=== PATIENT | male | born 1980 | race Caucasian/White ===

== ENCOUNTER 2016-12-24 18:09 | Emergency (ER) | payer OTHER ==
[2016-12-24 18:19] VITALS: RESP 16
--- NOTE | 2016-12-24 18:30 | ED ---
Skin/Abscess/FB HPI - General Chief complaint: Skin/Abscess/Foreign Body Stated complaint: SWELLING AROUND TATTOO Time Seen by Provider: 12/24/16 18:19 Source: patient Mode of arrival: ambulatory Limitations: no limitations - History of Present Illness Initial comments: 36-year-old male complains of right upper extremity pain and swelling the last 2 days. Patient states yesterday after be touching of his tattoo on his forearm. Patient states the pain is around the tattoo in the form and going up into the biceps down into the hand. Patient states is very painful. Patient states he's had MRSA and staph infections in the past. No fever chills. Patient denies any sores or rash or open drainage. Patient states it hurts to touch and move. - Related Data Previous Rx's Medication Instructions Recorded Sulfamethox-Tmp 800-160Mg [Bactrim 1 each PO Q12HR #14 tab 12/24/16 DS 800-160 mg] Allergies Allergy/AdvReac Type Severity Reaction Status Date / Time cyclobenzaprine Allergy Itching Verified 12/24/16 18:32 [From Flexeril] Iodinated Contrast- Oral and Allergy Swelling Verified 12/24/16 18:32 IV Dye Penicillins Allergy Rash/Hives Verified 12/24/16 18:32 Review of Systems ROS Statement: Those systems with pertinent positive or pertinent negative responses have been documented in the HPI. ROS Other: All systems not noted in ROS Statement are negative. Constitutional: Denies: fever, chills Skin: Reports: other (right arm pain swelling) Neurological: Denies: headache, weakness, numbness, paresthesias Past Medical History Past Medical History: No Reported History History of Any Multi-Drug Resistant Organisms: None Reported Past Surgical History: Orthopedic Surgery Past Psychological History: No Psychological Hx Reported Smoking Status: Current every day smoker Past Alcohol Use History: Occasional Past Drug Use History: None Reported General Exam Limitations: no limitations General appearance: alert, in no apparent distress Respiratory exam: Present: normal lung sounds bilaterally. Absent: respiratory distress, wheezes, rales, rhonchi, stridor Cardiovascular Exam: Present: regular rate, normal rhythm, normal heart sounds. Absent: systolic murmur, diastolic murmur, rubs, gallop, clicks Right Shoulder Exam: Present: normal inspection, full ROM. Absent: tenderness, swelling Upper Arm exam: Present: normal inspection, full ROM, tenderness. Absent: swelling Elbow exam: Present: normal inspection, full ROM, tenderness. Absent: swelling Forearm Wrist exam: Present: full ROM, tenderness (Entire right forearm), swelling (generally swollen), ecchymosis. Absent: normal inspection Hand Wrist exam: Present: normal inspection, full ROM, tenderness. Absent: swelling Neuro motor exam: Present: wrist extension intact, thumb opposition intact Neurosensory exam: Present: 2-point discrimination Vascular: Present: normal capillary refill Neurological exam: Present: alert, oriented X3, CN II-XII intact Psychiatric exam: Present: normal affect, normal mood Skin exam: Present: warm, dry, intact, normal color. Absent: rash Course Vital Signs 12/24/16 18:16 Temperature 97.2 F L Pulse Rate 88 Respiratory 16 Rate Blood Pressure 116/73 O2 Sat by Pulse 98 Oximetry Medical Decision Making - Medical Decision Making discussing this with Dr. Allison we reviewed the labs and ultrasound everything was within normal limits. Patient will be started on Bactrim DS twice a day for 10 days. Patient to follow-up with family doctor for recheck reports return sooner if problems worsen over the last 2 days - Lab Data Result diagrams: 12/24/16 18:36 12/24/16 18:36 Lab Results 12/24/16 12/24/16 Range/Units 18:36 18:36 WBC 9.8 (3.8-10.6) k/uL RBC 4.18 L (4.30-5.90) m/uL Hgb 13.4 (13.0-17.5) gm/dL Hct 39.4 (39.0-53.0) % MCV 94.3 (80.0-100.0) fL MCH 32.1 (25.0-35.0) pg MCHC 34.0 (31.0-37.0) g/dL RDW 13.6 (11.5-15.5) % Plt Count 290 (150-450) k/uL Neutrophils % 56 % Lymphocytes % 31 % Monocytes % 4 % Eosinophils % 7 % Basophils % 1 % Neutrophils # 5.4 (1.3-7.7) k/uL Lymphocytes # 3.0 (1.0-4.8) k/uL Monocytes # 0.4 (0-1.0) k/uL Eosinophils # 0.7 (0-0.7) k/uL Basophils # 0.1 (0-0.2) k/uL Sodium 140 (137-145) mmol/L Potassium 3.8 (3.5-5.1) mmol/L Chloride 108 H (98-107) mmol/L Carbon Dioxide 23 (22-30) mmol/L Anion Gap 9 mmol/L BUN 18 (9-20) mg/dL Creatinine 0.72 (0.66-1.25) mg/dL Est GFR (MDRD) Af Amer >60 (>60 ml/min/1.73 sqM) Est GFR (MDRD) Non-Af >60 (>60 ml/min/1.73 sqM) Glucose 91 (74-99) mg/dL Calcium 9.1 (8.4-10.2) mg/dL Total Bilirubin 0.5 (0.2-1.3) mg/dL AST 24 (17-59) U/L ALT 27 (21-72) U/L Alkaline Phosphatase 71 (38-126) U/L Total Protein 6.3 (6.3-8.2) g/dL Albumin 4.1 (3.5-5.0) g/dL Disposition Clinical Impression: Cellulitis, Arm pain Disposition: HOME SELF-CARE Condition: Good Instructions: Cellulitis (ED) Prescriptions: Sulfamethox-Tmp 800-160Mg [Bactrim DS 800-160 mg] 1 each PO Q12HR #14 tab Referrals: None,Stated [Primary Care Provider] - 1-2 days Osito Main MD [REFERRING] - 1-2 days Time of Disposition: 19:33
[2016-12-24 18:48] LABS: Basophils # (A) 0.1 k/uL (0-0.2); Basophils % (A) 1 %; CHCM 34.1; Eosinophils # (A) 0.7 k/uL (0-0.7); Eosinophils % (A) 7 %; HCT 39.4 % (39.0-53.0); HDW 2.49; HGB 13.4 gm/dL (13.0-17.5); Luc # (Auto) 0.17; Luc % (Auto) 2; Lymphocytes % (A) 31 %; MCH 32.1 pg (25.0-35.0); MCV 94.3 fL (80.0-100.0); Mean Platelet Volume 7.1; Monocytes # (A) 0.4 k/uL (0-1.0); Monocytes % (A) 4 %; Neutrophils # (A) 5.4 k/uL (1.3-7.7); Neutrophils % (A) 56 %; RBC 4.18 m/uL (4.30-5.90); RDW 13.6 % (11.5-15.5); WBC 9.8 k/uL (3.8-10.6); WBC (Perox) 9.78
[2016-12-24 18:58] LABS: ALT 27 U/L (21-72); AST 24 U/L (17-59); Alkaline Phosphatase 71 U/L (38-126); Anion Gap 9 mmol/L; Blood Urea Nitrogen 18 mg/dL (9-20); Calcium 9.1 mg/dL (8.4-10.2); Carbon Dioxide 23 mmol/L (22-30); Chloride 108 mmol/L (98-107); Glucose 91 mg/dL (74-99); Non-African American GFR(MDRD) >60 (>60 ml/min/1.73 sqM); Potassium 3.8 mmol/L (3.5-5.1); Sodium 140 mmol/L (137-145); Total Bilirubin 0.5 mg/dL (0.2-1.3); Total Protein 6.3 g/dL (6.3-8.2)
--- NOTE | 2016-12-24 19:28 | US ---
EXAMINATION TYPE: US venous doppler duplex UE RT DATE OF EXAM: 12/24/2016 COMPARISON: NONE CLINICAL HISTORY: Pain. Swelling around recent tattoo, no prev dvt SIDE PERFORMED: right Right Arm: neg for RUE dvt There is normal flow, compressibility and vascular waveforms. IMPRESSION: 1. Normal right upper extremity ultrasound without evidence of deep venous thrombosis.
[2016-12-24] MEDS ORDERED: SULFAMETH-TMP DS STARTER PACK 2 TAB BTL PO STA (19:30)
[2016-12-24 19:50] VITALS: BP 112/68; PULSE 89; TEMP 97.9
== END 2016-12-24 19:50 | disposition home or self-care (01) ==
LOC: EC 18:09
DX: L03.113 Cellulitis of right upper limb (principal); F17.200 Nicotine dependence, unspecified, uncomplicated; Z88.0 Allergy status to penicillin; Z91.041 Radiographic dye allergy status; Z88.8 Allergy status to other drugs, medicaments and biological substances
CPT/HCPCS: 36415; 80053; 85025; 99283

== ENCOUNTER → 2017-03-23 | Outpatient (CLI) | payer OTHER ==
--- NOTE | 2017-03-24 08:50 | XR ---
Thoracic spine HISTORY: Chronic low back pain 3 views of the thoracic spine Thoracic vertebral bodies show preserved height, alignment, and bone mineralization. There is mild mu ltilevel spondylosis. Disc spaces are maintained. IMPRESSION: Thoracic spondylosis.
--- NOTE | 2017-03-24 08:52 | XR ---
Lumbar spine HISTORY: Low back pain 3 views of the lumbar spine correlated to prior exam 11/16/2011 Lumbar vertebral bodies show preserved height, alignment, and bone mineralization. Disc space may be slightly reduced at L5-S1. There is mild multilevel spondylosis. IMPRESSION: Mild degenerative disc disease suspected.
== END | disposition home or self-care (01) ==
LOC: RADXRMAIN 15:46
PROVIDERS: ATTEND Internal Medicine Geriatric Medicine
DX: M47.814 Spondylosis without myelopathy or radiculopathy, thoracic region (principal); M54.5 Low back pain
CPT/HCPCS: 72072; 72100

== ENCOUNTER → 2017-06-21 | Outpatient (CLI) | payer OTHER ==
[2017-06-21 13:43] LABS: Basophils # (A) 0.1 k/uL (0-0.2); Basophils % (A) 1 %; Eosinophils # (A) 0.4 k/uL (0-0.7); Eosinophils % (A) 6 %; Lymphocytes # (A) 2.5 k/uL (1.0-4.8); Lymphocytes % (A) 39 %; MCH 31.2 pg (25.0-35.0); MCHC 31.8 g/dL (31.0-37.0); MCV 98.1 fL (80.0-100.0); Mean Platelet Volume 6.3; Monocytes # (A) 0.3 k/uL (0-1.0); Monocytes % (A) 4 %; Neutrophils # (A) 3.2 k/uL (1.3-7.7); Neutrophils % (A) 49 %; Platelet Count 360 k/uL (150-450); RBC 4.18 m/uL (4.30-5.90); RDW 13.8 % (11.5-15.5); WBC 6.5 k/uL (3.8-10.6)
[2017-06-21 14:12] LABS: ALT 30 U/L (21-72); AST 18 U/L (17-59); Alkaline Phosphatase 73 U/L (38-126); Anion Gap 10 mmol/L; Blood Urea Nitrogen 20 mg/dL (9-20); Calcium 9.7 mg/dL (8.4-10.2); Carbon Dioxide 25 mmol/L (22-30); Chloride 114 mmol/L (98-107); Glucose 101 mg/dL (74-99); Potassium 4.5 mmol/L (3.5-5.1); Sodium 149 mmol/L (137-145); Total Bilirubin 0.2 mg/dL (0.2-1.3); Total Protein 6.5 g/dL (6.3-8.2)
[2017-06-21 14:27] LABS: T4, Free (Free Thyroxine) 0.68 ng/dL (0.78-2.19)
[2017-06-21 14:54] LABS: Erythrocyte Sedimentation Rate 2 mm/hr (0-15)
[2017-06-21 19:54] LABS: Rheumatoid Factor <4 IU/mL (0-13)
[2017-06-21 20:11] LABS: Hepatitis A Antibody IgM Non-Reactive (Non-Reactive); Hepatitis B Core IgM Non-Reactive (Non-Reactive)
[2017-06-21 21:06] LABS: HIV AB P24 Non-Reactive (Non-Reactive); HIV P24 AG Non-Reactive (Non-Reactive)
[2017-06-23 14:08] LABS: HIV-1 RNA Not detected (Not detected); HIV-1 RNA, Quant <40 Copies/mL (<40)
== END | disposition home or self-care (01) ==
LOC: LABWHC1 13:01
PROVIDERS: ATTEND Physician Assistant
DX: M13.0 Polyarthritis, unspecified (principal); Z20.6 Contact with and (suspected) exposure to human immunodeficiency virus [HIV]
CPT/HCPCS: 36415; 80053; 80074; 84439; 84443; 84481; 85025; 85652; 86038; 86431; 87390; 87536

== ENCOUNTER → 2017-07-04 | Outpatient (CLI) | payer OTHER ==
--- NOTE | 2017-07-04 12:17 | MR ---
EXAMINATION TYPE: MR cspine/lspine wo con DATE OF EXAM: 07/04/2017 COMPARISON: 06/03/2009 HISTORY: Low back pain / Cervicalgia CONTRAST: Performed utilizing 0 mL intravenous Gadavist gadolinium contrast. TECHNIQUE: Multiplanar multiecho imaging on a 3.0 Leonie magnet is performed through the cervical spin e. FINDINGS: The craniovertebral junction is normal. Vertebral body alignment is normal. There is int erval development of a C6-7 disc herniation. Small subligamentous C5-6 disc herniation may been prese nt previously. C7-T1: No focal disc herniation or significant disc bulge is evident. No spinal canal stenosis or n eural foraminal stenosis is present. C6-7: There is mild anterior thecal sac compression from subligamentous disc herniation. Foramen are patent. No spinal canal stenosis or neural foraminal stenosis present. No cord contact is evident. C5-6: Minimal disc bulge is present with anterior thecal sac compression. This is slightly greater in the right paracentral region. No AP spinal canal stenosis or neural foraminal stenosis present.. C4-5: No focal disc herniation or significant disc bulge is evident. No spinal canal stenosis or meredith ral foraminal stenosis is present. C3-4: No focal disc herniation or significant disc bulge is evident. No spinal canal stenosis or meredith ral foraminal stenosis is present. C2-3: No focal disc herniation or significant disc bulge is evident. No spinal canal stenosis or meredith ral foraminal stenosis is present. C5-C6 level may be similar to prior study. The C6-7 level appears to been interval change. Signal thr ough the cord is normal. IMPRESSIONS: 1. Interval development of a subligamentous disc herniation C6-7 with mild anterior thecal sac compre ssion. 2. Stable minimal subligamentous disc herniation C5-6. EXAMINATION TYPE: MR jahairaine/edmar wo con DATE OF EXAM: 07/04/2017 COMPARISON: NONE HISTORY: Low back pain / Cervicalgia CONTRAST: 0 mL intravenous Gadavist. TECHNIQUE: Multiplanar, multisequence images of the lumbar spine were acquired. FINDINGS: L5-S1: No significant disc bulge or disc herniation. No spinal canal stenosis. No foraminal stenosi s. L4-L5: No significant disc bulge or disc herniation. No spinal canal stenosis. No foraminal stenosi s. L3-L4: No significant disc bulge or disc herniation. No spinal canal stenosis. No foraminal stenosi s. L2-L3: No significant disc bulge or disc herniation. No spinal canal stenosis. No foraminal stenosi s. L1-L2: No significant disc bulge or disc herniation. No spinal canal stenosis. No foraminal stenosi s. T12-L1: No significant disc bulge or disc herniation. No spinal canal stenosis. No foraminal stenos is. No distal cord anomaly is evident. IMPRESSION: 1. No suspicious lumbar spine changes.
== END | disposition home or self-care (01) ==
LOC: RADMRIMAIN 06:07
PROVIDERS: ATTEND Psychiatry & Neurology Neurology
DX: M50.222 Other cervical disc displacement at C5-C6 level (principal); G95.29 Other cord compression; M54.5 Low back pain; Z91.041 Radiographic dye allergy status; Z88.8 Allergy status to other drugs, medicaments and biological substances
CPT/HCPCS: 72141; 72148

== ENCOUNTER 2017-08-29 11:21 | Emergency (ER) | payer OTHER ==
[2017-08-29] MEDS ORDERED: RX INFO: IV CONTRAST WAS GIVEN 1 EACH MISC MISCELLANE PRN (12:14)
[2017-08-29] MEDS ORDERED: ONDANSETRON 4 MG/2 ML VIAL IVP STA (12:15)
[2017-08-29] MEDS ORDERED: diphenhydrAMINE 50 MG/ML 1 ML VIAL IVP STA (12:15)
[2017-08-29] MEDS ORDERED: MORPHINE SULFATE 4 MG/0.8 ML SYRINGE (INJ) IVP ONE (12:15)
--- NOTE | 2017-08-29 12:52 | ED ---
General Adult HPI - General Chief complaint: Headache Stated complaint: facial swelling Time Seen by Provider: 08/29/17 11:49 Source: patient, RN notes reviewed Mode of arrival: ambulatory Limitations: no limitations - History of Present Illness Initial comments: This is a 37-year-old male presents emergency Department chief complaint infection to his nose. Patient states that he felt like he had a pimple on inside of his nose he states that he took a new razor blade side to cut it open there was some dried pus like material. He states he is concerned that he may have MRSA as he is had in the past but states at that time it was only to his arm. Patient denies any fever, chills. Patient went of left-sided facial pain and pressure. He states it's causing him to have a headache there is no pain in the posterior aspect of his head he states that it is all facial pain. Patient states he was a Dr. Garcia's office for nerve conduction tests and states that he is advised, emergency for further evaluation. Denies sore throat , ear pain, dizziness, chest pain or shortness of breath - Related Data Home Medications Medication Instructions Recorded Confirmed Baclofen [Lioresal] 10 mg PO TID 08/29/17 08/29/17 Butalb/Acetaminophen/Caffeine 1 tab PO DAILY PRN 08/29/17 08/29/17 [Fioricet 50-325-40] Cetirizine HCl [Cetirizine HCl] 10 mg PO DAILY 08/29/17 08/29/17 DULoxetine HCL [Cymbalta] 60 mg PO HS 08/29/17 08/29/17 Emtricitabine/Tenofovir (Tdf) 1 tab PO DAILY 08/29/17 08/29/17 [Truvada 200 mg-300 mg Tablet] Gabapentin [Neurontin] 400 mg PO TID 08/29/17 08/29/17 HYDROcodone/APAP 5-325MG [[place] 1 tab PO BID PRN 08/29/17 08/29/17 5-325] Ibuprofen [Motrin] 800 mg PO TID PRN 08/29/17 08/29/17 LORazepam [Ativan] 1 mg PO BID 08/29/17 08/29/17 Lansoprazole [Lansoprazole] 15 mg PO DAILY 08/29/17 08/29/17 Naproxen [Naproxen] 500 mg PO BID 08/29/17 08/29/17 Varenicline [Chantix Starter Pack] 0.5 mg PO DAILY 08/29/17 08/29/17 traZODone HCL 50 mg PO HS 08/29/17 08/29/17 Previous Rx's Medication Instructions Recorded Hydrocodone/Acetaminophen [[place] 1 tab PO Q6HR PRN #12 tab 08/29/17 5-325] Sulfamethox-Tmp 800-160Mg [Bactrim 1 each PO Q12HR #20 tab 08/29/17 Ds] Allergies Allergy/AdvReac Type Severity Reaction Status Date / Time cyclobenzaprine Allergy Itching Verified 08/29/17 12:05 [From Flexeril] Iodinated Contrast- Oral and Allergy Swelling Verified 08/29/17 12:05 IV Dye Penicillins Allergy Rash/Hives Verified 08/29/17 12:05 Review of Systems ROS Statement: Those systems with pertinent positive or pertinent negative responses have been documented in the HPI. ROS Other: All systems not noted in ROS Statement are negative. Past Medical History Past Medical History: No Reported History History of Any Multi-Drug Resistant Organisms: MRSA Date of last positivie culture/infection: 2010 MDRO Source:: rt elbow Past Surgical History: Orthopedic Surgery Past Psychological History: No Psychological Hx Reported Smoking Status: Current every day smoker Past Alcohol Use History: Occasional Past Drug Use History: None Reported General Exam Limitations: no limitations General appearance: alert, in no apparent distress Head exam: Present: atraumatic, normocephalic, normal inspection Eye exam: Present: normal appearance, PERRL, EOMI. Absent: scleral icterus, conjunctival injection, periorbital swelling ENT exam: Present: normal oropharynx, mucous membranes moist, TM's normal bilaterally, normal external ear exam, other (Left nostril is erythematous, edematous there is noted swelling and the nasal passage, there is tenderness surrounding the left maxillary region). Absent: normal exam Neck exam: Present: normal inspection, full ROM. Absent: tenderness, meningismus, lymphadenopathy Respiratory exam: Present: normal lung sounds bilaterally. Absent: respiratory distress, wheezes, rales, rhonchi, stridor Cardiovascular Exam: Present: regular rate, normal rhythm, normal heart sounds. Absent: systolic murmur, diastolic murmur, rubs, gallop, clicks Neurological exam: Present: alert, oriented X3, CN II-XII intact Skin exam: Present: warm, dry, intact, normal color. Absent: rash Course Vital Signs 08/29/17 08/29/17 11:45 13:44 Temperature 97.9 F Pulse Rate 73 62 Respiratory 20 18 Rate Blood Pressure 124/72 110/52 O2 Sat by Pulse 97 100 Oximetry Medical Decision Making - Medical Decision Making This a 37-year-old male presents emergency Department with complaints of infection to his left nostril. Patient had lab work, CT here which are all unremarkable. There is no fluid collections. This appears to be cellulitis of left nostril he does have a history of MRSA in which the patient was placed on Bactrim at this time. Patient complains of severe pain though he states that he is on chronic pain meds and states that he seemed to pain management on the 17th of this month. That explained that he can only get a 3 day prescription from the ER and that he needs to assess his primary care physician for further pain meds at this time. - Lab Data Result diagrams: 08/29/17 12:47 08/29/17 12:47 Lab Results 08/29/17 08/29/17 08/29/17 Range/Units 12:47 12:47 12:47 WBC 10.0 (3.8-10.6) k/uL RBC 4.11 L (4.30-5.90) m/uL Hgb 12.9 L (13.0-17.5) gm/dL Hct 37.9 L (39.0-53.0) % MCV 92.3 (80.0-100.0) fL MCH 31.3 (25.0-35.0) pg MCHC 33.9 (31.0-37.0) g/dL RDW 13.8 (11.5-15.5) % Plt Count 272 (150-450) k/uL Neutrophils % 65 % Lymphocytes % 24 % Monocytes % 4 % Eosinophils % 5 % Basophils % 1 % Neutrophils # 6.5 (1.3-7.7) k/uL Lymphocytes # 2.4 (1.0-4.8) k/uL Monocytes # 0.4 (0-1.0) k/uL Eosinophils # 0.5 (0-0.7) k/uL Basophils # 0.1 (0-0.2) k/uL PT (9.0-12.0) sec INR (<1.2) APTT (22.0-30.0) sec Sodium 142 (137-145) mmol/L Potassium 4.3 (3.5-5.1) mmol/L Chloride 110 H (98-107) mmol/L Carbon Dioxide 23 (22-30) mmol/L Anion Gap 9 mmol/L BUN 18 (9-20) mg/dL Creatinine 0.62 L (0.66-1.25) mg/dL Est GFR (CKD-EPI)AfAm >90 (>60 ml/min/1.73 sqM) Est GFR (CKD-EPI)NonAf >90 (>60 ml/min/1.73 sqM) Glucose 84 (74-99) mg/dL Plasma Lactic Acid Nahum <0.5 L (0.7-2.0) mmol/L Calcium 8.9 (8.4-10.2) mg/dL Total Bilirubin 0.2 (0.2-1.3) mg/dL AST 28 (17-59) U/L ALT 32 (21-72) U/L Alkaline Phosphatase 96 (38-126) U/L Total Protein 5.8 L (6.3-8.2) g/dL Albumin 3.8 (3.5-5.0) g/dL 08/29/17 Range/Units 12:47 WBC (3.8-10.6) k/uL RBC (4.30-5.90) m/uL Hgb (13.0-17.5) gm/dL Hct (39.0-53.0) % MCV (80.0-100.0) fL MCH (25.0-35.0) pg MCHC (31.0-37.0) g/dL RDW (11.5-15.5) % Plt Count (150-450) k/uL Neutrophils % % Lymphocytes % % Monocytes % % Eosinophils % % Basophils % % Neutrophils # (1.3-7.7) k/uL Lymphocytes # (1.0-4.8) k/uL Monocytes # (0-1.0) k/uL Eosinophils # (0-0.7) k/uL Basophils # (0-0.2) k/uL PT 9.4 (9.0-12.0) sec INR 0.9 (<1.2) APTT 24.6 (22.0-30.0) sec Sodium (137-145) mmol/L Potassium (3.5-5.1) mmol/L Chloride (98-107) mmol/L Carbon Dioxide (22-30) mmol/L Anion Gap mmol/L BUN (9-20) mg/dL Creatinine (0.66-1.25) mg/dL Est GFR (CKD-EPI)AfAm (>60 ml/min/1.73 sqM) Est GFR (CKD-EPI)NonAf (>60 ml/min/1.73 sqM) Glucose (74-99) mg/dL Plasma Lactic Acid Nahum (0.7-2.0) mmol/L Calcium (8.4-10.2) mg/dL Total Bilirubin (0.2-1.3) mg/dL AST (17-59) U/L ALT (21-72) U/L Alkaline Phosphatase (38-126) U/L Total Protein (6.3-8.2) g/dL Albumin (3.5-5.0) g/dL Disposition Clinical Impression: Cellulitis of nostril, Facial pain Disposition: HOME SELF-CARE Condition: Stable Instructions: Cellulitis (ED) Additional Instructions: Please return to the Emergency Department if symptoms worsen or any other concerns. Prescriptions: Hydrocodone/Acetaminophen [[place] 5-325] 1 tab PO Q6HR PRN #12 tab PRN Reason: Pain Sulfamethox-Tmp 800-160Mg [Bactrim Ds] 1 each PO Q12HR #20 tab Is patient prescribed a controlled substance at d/c from ED?: Yes If prescribed controlled substance>3 days was MAPS reviewed?: No When asked, does pt state using other controlled substances?: Yes Referrals: Nathan Fung MD [Primary Care Provider] - 1-2 days Marvin Yung DO [Doctor of Osteopathic Medicine] - 1-2 days Time of Disposition: 13:58
[2017-08-29 13:10] LABS: Basophils # (A) 0.1 k/uL (0-0.2); Basophils % (A) 1 %; Eosinophils # (A) 0.5 k/uL (0-0.7); Eosinophils % (A) 5 %; HCT 37.9 % (39.0-53.0); HGB 12.9 gm/dL (13.0-17.5); Lymphocytes # (A) 2.4 k/uL (1.0-4.8); Lymphocytes % (A) 24 %; MCH 31.3 pg (25.0-35.0); MCHC 33.9 g/dL (31.0-37.0); MCV 92.3 fL (80.0-100.0); Mean Platelet Volume 6.7; Monocytes # (A) 0.4 k/uL (0-1.0); Monocytes % (A) 4 %; Neutrophils # (A) 6.5 k/uL (1.3-7.7); Neutrophils % (A) 65 %; Platelet Count 272 k/uL (150-450); RBC 4.11 m/uL (4.30-5.90); RDW 13.8 % (11.5-15.5)
[2017-08-29 13:20] LABS: ALT 32 U/L (21-72); AST 28 U/L (17-59); Albumin 3.8 g/dL (3.5-5.0); Alkaline Phosphatase 96 U/L (38-126); Anion Gap 9 mmol/L; Blood Urea Nitrogen 18 mg/dL (9-20); Calcium 8.9 mg/dL (8.4-10.2); Carbon Dioxide 23 mmol/L (22-30); Chloride 110 mmol/L (98-107); Glucose 84 mg/dL (74-99); Potassium 4.3 mmol/L (3.5-5.1); Sodium 142 mmol/L (137-145); Total Bilirubin 0.2 mg/dL (0.2-1.3); Total Protein 5.8 g/dL (6.3-8.2)
[2017-08-29 13:28] LABS: INR 0.9 (<1.2); Partial Thromboplastin Time 24.6 sec (22.0-30.0); Prothrombin Time 9.4 sec (9.0-12.0)
--- NOTE | 2017-08-29 13:32 | CT ---
EXAMINATION TYPE: CT facial bones w con DATE OF EXAM: 08/29/2017 COMPARISON: NONE HISTORY: Lt facial swelling, down upper neck CT DLP: 728.2 mGycm Automated exposure control for dose reduction was used. CONTRAST: CT scan of the facial bones is performed with IV Contrast, patient injected with 100 mL of Isovue 300 . FINDINGS: There are few small mucous retention cysts or polyps in the maxillary and ethmoid sinuses b ilaterally as well as in the left sphenoid sinus superior aspect. There is suspected old healed fracture of nasal bridge. No soft tissue swelling is seen. There is no acute facial bone fracture or dislocation identified. Globes are intact bilaterally. Visualized portion of brain parenchyma is unremarkable. There are some scattered subcentimeter lymph nodes throughout the neck bilaterally. No greater than 1 cm adenopathy is identified. Visualized osseous structures are intact. Visualized mastoid air cells show no suspicious opacificati on. No well-formed fluid collection or abscess is seen. Visualized airway is patent. IMPRESSION: No suspicious focal fluid collection.
[2017-08-29] MEDS ORDERED: HYDROcodone/APAP 5-325MG 1 EACH TAB PO STA (14:03)
[2017-08-29 14:13] VITALS: BP 118/56; PULSE 72; RESP 16; TEMP 98.3
== END 2017-08-29 14:14 | disposition home or self-care (01) ==
LOC: EC 11:21
DX: J34.0 Abscess, furuncle and carbuncle of nose (principal); F17.200 Nicotine dependence, unspecified, uncomplicated; Z86.14 Personal history of Methicillin resistant Staphylococcus aureus infection; Z79.1 Long term (current) use of non-steroidal anti-inflammatories (NSAID); Z79.899 Other long term (current) drug therapy; Z88.0 Allergy status to penicillin; Z88.8 Allergy status to other drugs, medicaments and biological substances; Z91.041 Radiographic dye allergy status
CPT/HCPCS: 36415; 80053; 83605; 85025; 85610; 85730; 87040; 70487; 99284; 96374; 96375 ×2; J1200; J2405; Q9967; J2270

== ENCOUNTER 2017-10-20 21:04 | Emergency (ER) | payer OTHER ==
[2017-10-20 21:22] VITALS: TEMP 98.1
[2017-10-20] MEDS ORDERED: IPRATROPIUM-ALBUTEROL 3 ML NEB INHALATION STA (21:28)
--- NOTE | 2017-10-20 21:32 | ED ---
URI HPI - General Chief Complaint: Upper Respiratory Infection Stated Complaint: URI Time Seen by Provider: 10/20/17 21:20 Source: patient, RN notes reviewed Mode of arrival: ambulatory Limitations: no limitations - History of Present Illness Initial Comments: This a 37-year-old male presents emergency Department chief complaint of cough congestion last 3-4 days. Patient has recent diagnosis COPD and does use albuterol inhalers at home. Patient reports no fever no chills. Patient was seen here recently also for nasal infection. Patient does have a history of MRSA. Patient denies any ear pain or sore throat he does admit to sinus congestion but he takes Zyrtec daily and does admit to environmental ALLERGIES. Patient denies productive cough. He does have intermittent shortness breath denies chest pain. - Related Data Home Medications Medication Instructions Recorded Confirmed Baclofen [Lioresal] 10 mg PO TID 08/29/17 10/20/17 Butalb/Acetaminophen/Caffeine 1 tab PO DAILY PRN 08/29/17 10/20/17 [Fioricet 50-325-40] Cetirizine HCl [Cetirizine HCl] 10 mg PO DAILY 08/29/17 10/20/17 DULoxetine HCL [Cymbalta] 60 mg PO HS 08/29/17 10/20/17 Emtricitabine/Tenofovir (Tdf) 1 tab PO DAILY 08/29/17 10/20/17 [Truvada 200 mg-300 mg Tablet] Gabapentin [Neurontin] 400 mg PO TID 08/29/17 10/20/17 Ibuprofen [Motrin] 800 mg PO TID PRN 08/29/17 10/20/17 LORazepam [Ativan] 1 mg PO BID 08/29/17 10/20/17 Lansoprazole [Lansoprazole] 15 mg PO DAILY 08/29/17 10/20/17 Naproxen [Naproxen] 500 mg PO BID 08/29/17 10/20/17 traZODone HCL 50 mg PO HS 08/29/17 10/20/17 Previous Rx's Medication Instructions Recorded Hydrocodone/Acetaminophen [[place] 1 tab PO Q6HR PRN #12 tab 08/29/17 5-325] Sulfamethox-Tmp 800-160Mg [Bactrim 1 each PO Q12HR #20 tab 04/24/18 Ds] Azithromycin [Zithromax Z-pack] 0 mg PO DIRECTED #1 pack 10/20/17 predniSONE 50 mg PO DAILY #5 tab 10/20/17 Allergies Allergy/AdvReac Type Severity Reaction Status Date / Time cyclobenzaprine Allergy Itching Verified 08/29/17 12:05 [From Flexeril] Iodinated Contrast- Oral and Allergy Swelling Verified 08/29/17 12:05 IV Dye Penicillins Allergy Rash/Hives Verified 08/29/17 12:05 Review of Systems ROS Statement: Those systems with pertinent positive or pertinent negative responses have been documented in the HPI. ROS Other: All systems not noted in ROS Statement are negative. Past Medical History Past Medical History: COPD History of Any Multi-Drug Resistant Organisms: MRSA Date of last positivie culture/infection: 2010 MDRO Source:: rt elbow Past Surgical History: Orthopedic Surgery Additional Past Surgical History / Comment(s): R shoulder sx, R knee Past Psychological History: No Psychological Hx Reported Smoking Status: Current every day smoker Past Alcohol Use History: None Reported Past Drug Use History: None Reported General Exam Limitations: no limitations General appearance: alert, in no apparent distress Head exam: Present: atraumatic, normocephalic, normal inspection Eye exam: Present: normal appearance, PERRL, EOMI. Absent: scleral icterus, conjunctival injection, periorbital swelling ENT exam: Present: normal oropharynx, mucous membranes moist, TM's normal bilaterally, normal external ear exam, other (Mild swelling on the left nare) Neck exam: Present: normal inspection, full ROM. Absent: tenderness, meningismus, lymphadenopathy Respiratory exam: Present: wheezes. Absent: normal lung sounds bilaterally, respiratory distress, rales, rhonchi, stridor Cardiovascular Exam: Present: regular rate, normal rhythm, normal heart sounds. Absent: systolic murmur, diastolic murmur, rubs, gallop, clicks Neurological exam: Present: alert, oriented X3, CN II-XII intact Skin exam: Present: warm, dry, intact, normal color. Absent: rash Course Vital Signs 10/20/17 21:17 Temperature 98.1 F Pulse Rate 76 Respiratory 20 Rate Blood Pressure 149/73 O2 Sat by Pulse 100 Oximetry Medical Decision Making - Medical Decision Making 37-year-old male presented for cough congestion. Patient has a history of COPD. Patient treated for mild COPD exacerbation. Patient was given DuoNeb treatment in the emergency Department. Patient had x-ray which was within normal limits. Patient discharged on azithromycin and steroids. Disposition Clinical Impression: Upper respiratory infection, COPD with exacerbation Disposition: HOME SELF-CARE Condition: Stable Instructions: Upper Respiratory Infection (ED) Additional Instructions: Please return to the Emergency Department if symptoms worsen or any other concerns. Prescriptions: Azithromycin [Zithromax Z-pack] 0 mg PO DIRECTED #1 pack predniSONE 50 mg PO DAILY #5 tab Is patient prescribed a controlled substance at d/c from ED?: No Referrals: Nathan Fung MD [Primary Care Provider] - 1-2 days Time of Disposition: 21:51
--- NOTE | 2017-10-20 21:46 | XR ---
EXAMINATION TYPE: XR chest 2V DATE OF EXAM: 10/20/2017 COMPARISON: NONE HISTORY: Cough TECHNIQUE: Frontal and lateral views of the chest are obtained. FINDINGS: Heart and mediastinum are normal. Lungs are clear. Diaphragm is normal. Bony thorax appear s normal. IMPRESSION: Normal chest
[2017-10-20] MEDS ORDERED: KETOROLAC 60 MG/2 ML VIAL IM STA (21:54)
[2017-10-20 22:56] VITALS: BP 124/58; PULSE 64; RESP 20
== END 2017-10-20 22:56 | disposition home or self-care (01) ==
LOC: EC 21:04
DX: J44.1 Chronic obstructive pulmonary disease with (acute) exacerbation (principal); J06.9 Acute upper respiratory infection, unspecified; F17.200 Nicotine dependence, unspecified, uncomplicated; Z86.14 Personal history of Methicillin resistant Staphylococcus aureus infection; Z88.0 Allergy status to penicillin; Z88.8 Allergy status to other drugs, medicaments and biological substances; Z91.041 Radiographic dye allergy status; Z79.1 Long term (current) use of non-steroidal anti-inflammatories (NSAID); Z79.899 Other long term (current) drug therapy
CPT/HCPCS: 99283; 96372; 94640; 71046; J1885

== ENCOUNTER → 2018-04-10 | Outpatient (CLI) | payer OTHER | END | disposition home or self-care (01) | LOC: LABWHC1 09:27 | PROVIDERS: ATTEND Physician Assistant | DX: I49.9 Cardiac arrhythmia, unspecified (principal) | CPT/HCPCS: 93005 ==

== ENCOUNTER → 2021-02-11 | Outpatient (CLI) | payer OTHER ==
--- NOTE | 2021-02-11 10:17 | XR ---
EXAMINATION TYPE: XR chest 2V DATE OF EXAM: 02/11/2021 COMPARISON: 10/20/2017 TECHNIQUE: PA and lateral views submitted. HISTORY: Cough FINDINGS: The lungs are clear and there is no pneumothorax, pleural effusion, or focal pneumonia. Heart size normal. Hyperinflation of the lungs. Hypertrophic change of the spine. IMPRESSION: 1. No acute process. Mild hyperinflation correlate for COPD or asthma.
== END | disposition home or self-care (01) ==
LOC: RADXRMAIN 09:55
PROVIDERS: ATTEND Nurse Practitioner Family
DX: R05.9 Cough, unspecified (principal)
CPT/HCPCS: 71046

== ENCOUNTER 2021-02-15 11:55 | Emergency (ER) | payer OTHER ==
[2021-02-15 12:45] VITALS: RESP 18; TEMP 98.2
[2021-02-15 13:28] LABS: Basophils # (A) 0.1 k/uL (0-0.2); Basophils % (A) 1 %; Eosinophils # (A) 0.5 k/uL (0-0.7); Eosinophils % (A) 6 %; HCT 47.1 % (39.0-53.0); HGB 15.5 gm/dL (13.0-17.5); Lymphocytes # (A) 2.9 k/uL (1.0-4.8); Lymphocytes % (A) 34 %; MCV 93.9 fL (80.0-100.0); Mean Platelet Volume 7.1; Monocytes # (A) 0.4 k/uL (0-1.0); Monocytes % (A) 5 %; Neutrophils # (A) 4.5 k/uL (1.3-7.7); Neutrophils % (A) 54 %; Platelet Count 328 k/uL (150-450); RBC 5.01 m/uL (4.30-5.90); RDW 13.4 % (11.5-15.5); WBC 8.5 k/uL (3.8-10.6)
[2021-02-15 13:47] LABS: Partial Thromboplastin Time 24.9 sec (22.0-30.0); Prothrombin Time 10.5 sec (9.0-12.0)
[2021-02-15 13:48] LABS: ALT 38 U/L (4-49); AST 22 U/L (17-59); African American GFR (CKD) >90 (>60 ml/min/1.73 sqM); Albumin 4.5 g/dL (3.5-5.0); Alkaline Phosphatase 77 U/L (38-126); Anion Gap 7 mmol/L; Blood Urea Nitrogen 22 mg/dL (9-20); Calcium 9.8 mg/dL (8.4-10.2); Carbon Dioxide 23 mmol/L (22-30); Chloride 108 mmol/L (98-107); Glucose 93 mg/dL (74-99); Magnesium 2.2 mg/dL (1.6-2.3); Non-African American GFR(CKD) >90 (>60 ml/min/1.73 sqM); Potassium 4.4 mmol/L (3.5-5.1); Sodium 138 mmol/L (137-145); Total Bilirubin 0.6 mg/dL (0.2-1.3); Total Protein 7.2 g/dL (6.3-8.2)
--- NOTE | 2021-02-15 14:54 | XR ---
EXAMINATION TYPE: XR chest 2V DATE OF EXAM: 02/15/2021 COMPARISON: 02/11/2021 TECHNIQUE: PA and lateral views submitted. HISTORY: Chest pain FINDINGS: The lungs are clear and there is no pneumothorax, pleural effusion, or focal pneumonia. Hyperinflat ion suggests COPD. Heart size normal. Hypertrophic change of the spine. IMPRESSION: 1. No acute process. Finding Suggest COPD.
[2021-02-15] MEDS ORDERED: ASPIRIN 81 MG PO STA (16:04)
[2021-02-15] MEDS ORDERED: LORazepam 2 MG/ML INJ IV STA (16:04)
[2021-02-15] MEDS ORDERED: MORPHINE SULFATE 4 MG/ML SYRINGE IVP STA (16:04)
--- NOTE | 2021-02-15 16:35 | ED ---
General Adult HPI - General Chief complaint: Chest Pain Stated complaint: Chest Pain Time Seen by Provider: 02/15/21 15:41 Source: patient, RN notes reviewed, old records reviewed Mode of arrival: wheelchair Limitations: no limitations - History of Present Illness Initial comments: Patient is a 40-year-old male with past medical history remarkable for anxiety, COPD, family history of heart disease presents emergency Department complaining of a two-week history of chest pains and fatigue. Patient was initially evaluated in triage and brought back to the emergency room following initial laboratory study results. I evaluated the patient when he was placed in a room. Patient states he has been having ongoing chest discomfort the last 2 weeks. It is more or less constant, and worse when he is more stressed. He states he is under more stress the last few months as both his parents had cancer. He has been attempting to care of him. His calves the chest pain as an achy sensation located over the left chest that occasionally will radiate towards his left arm. It is reproducible on palpation. It is not worse with movement of the left arm. He states he occasionally gets shortness of breath with it. It is a pleuritic pain. It does radiate to the back. He denies any nausea or vomiting or abdominal pain. Denies any headaches, lightheadedness. His no other acute complaints at this time. He states he was not vaccinated for COVID-19. His no known sick contacts. Denies any cough, fevers, chills. Recently had pneumonia he states earlier this month and was treated at home with antibiotics, steroids, breathing treatments. He states that this feels different. - Related Data Home Medications Medication Instructions Recorded Confirmed Baclofen [Lioresal] 10 mg PO TID 08/29/17 10/20/17 Butalb/Acetaminophen/Caffeine 1 tab PO DAILY PRN 08/29/17 10/20/17 [Fioricet 50-325-40] Cetirizine HCl 10 mg PO DAILY 08/29/17 10/20/17 DULoxetine HCL [Cymbalta] 60 mg PO HS 08/29/17 10/20/17 Emtricitabine/Tenofovir (Tdf) 1 tab PO DAILY 08/29/17 10/20/17 [Truvada 200 mg-300 mg Tablet] Gabapentin [Neurontin] 400 mg PO TID 08/29/17 10/20/17 Ibuprofen [Motrin] 800 mg PO TID PRN 08/29/17 10/20/17 LORazepam [Ativan] 1 mg PO BID 08/29/17 10/20/17 Lansoprazole 15 mg PO DAILY 08/29/17 10/20/17 Naproxen 500 mg PO BID 08/29/17 10/20/17 traZODone HCL 50 mg PO HS 08/29/17 10/20/17 Previous Rx's Medication Instructions Recorded Hydrocodone/Acetaminophen [Sharon 1 tab PO Q6HR PRN #12 tab 08/29/17 5-325] Sulfamethox-Tmp 800-160Mg [Bactrim 1 each PO Q12HR #20 tab 08/29/17 Ds] Azithromycin [Zithromax Z-pack (6 0 mg PO DIRECTED #1 pack 10/20/17 tabs)] predniSONE 50 mg PO DAILY #5 tab 10/20/17 Lidocaine 5% Patch [Lidoderm 5% 1 patch TOPICAL DAILY PRN 7 Days 02/15/21 Patch] #7 patch Allergies Allergy/AdvReac Type Severity Reaction Status Date / Time cyclobenzaprine Allergy Itching Verified 02/15/21 12:46 [From Flexeril] Iodinated Contrast Media Allergy Swelling Verified 02/15/21 12:46 [Iodinated Contrast- Oral and IV Dye] Penicillins Allergy Rash/Hives Verified 02/15/21 12:46 Review of Systems ROS Statement: Those systems with pertinent positive or pertinent negative responses have been documented in the HPI. Review of Systems: CONST: Denies fever EYES: Denies blurry vision ENT: Denies nasal congestion C/V: Endorses chest pain RESP: Endorses occasional dyspnea GI: Denies abdominal pain : Denies dysuria SKIN: Denies rash. MSK: Denies joint pain. NEURO: Denies headache PSYCH: Denies suicidal and homicidal ideations/plans/attempts. Denies visual or auditory hallucinations. He endorses worsening stress over the last few months. History of anxiety. ROS Other: All systems not noted in ROS Statement are negative. Past Medical History Past Medical History: COPD History of Any Multi-Drug Resistant Organisms: MRSA Date of last positivie culture/infection: 2010 MDRO Source:: rt elbow Past Surgical History: Orthopedic Surgery Additional Past Surgical History / Comment(s): R shoulder sx, R knee Past Psychological History: No Psychological Hx Reported Smoking Status: Current every day smoker Past Alcohol Use History: None Reported Past Drug Use History: None Reported General Exam - General Exam Comments Initial Comments: Constitutional: Blood pressure was default value, pulse was default value, respirations were default value, pulse oximetry was default value, temperature was default value. General: Appears somewhat anxious and in mild distress secondary to chest pain. HEAD: Normal with no signs of head trauma. EYES: PERRLA, EOMI, conjunctiva normal, no discharge. ENT: Hearing grossly intact, normal oropharynx. RESPIRATORY: Clear breath sounds bilaterally. No wheezes, rales, or rhonchi. C/V: Regular rate and rhythm. S1 and S2 auscultated, no edema, peripheral pulses 2+ and intact throughout. left sided chest pain is reproducible on palpation along the midaxillary line along the inferior-most rib and intercostal space. ABD: Abd is soft, nontender, nondistended EXT: Normal range of motion, no obvious deformity SKIN: No rashes or lesions observed on exposed skin. NEURO: Alert and oriented 4. No focal deficits. Limitations: no limitations Course Vital Signs 02/15/21 02/15/21 02/15/21 12:42 15:48 17:41 Temperature 98.2 F Pulse Rate 73 66 71 Respiratory 18 18 18 Rate Blood Pressure 137/82 140/104 130/91 O2 Sat by Pulse 97 96 96 Oximetry Medical Decision Making - Medical Decision Making Based on the patient's presentation and physical exam, I cannot rule out the possibility of cardiac etiology for his current symptoms. Patient is low risk for pulmonary embolism basophils criteria, however I would like to obtain screening d-dimer as well. By the time I evaluated the patient, patient already had a set of laboratory studies drawn 3 hours previously. There were within normal limits, including a negative troponin. We will repeat the troponin as it has been 3 hours since arrival. EKG and chest x-ray will also be obtained. I will also add on a COVID-19 swab. Patient was in agreement this plan. He will be symptomatically treated for his pain, with aspirin, morphine. We will also provide the patient with a low dose of Ativan as he is feeling anxious. We discussed at length that his pain may be related to anxiety and increased stress, and he was in agreement. Patient's EKG shows no acute changes. Patient likely has left ventricular hypertrophy which is seen on prior EKGs. There is an incomplete right bundle branch block. Patient's chest x-ray shows no signs of acute cardiopulmonary process. Initial laboratory studies were remarkable for negative troponin. D- dimer was found to be within normal limits. Repeat troponin is negative. I informed the patient of his negative workup. Due to the chronicity of his symptoms, I have low suspicion for acute cardiopulmonary process at this time. Patient's heart score is 1. He is feeling somewhat improved at this time. We did discuss that is likely experiencing muscular skeletal pain as cause of his chest wall pain cannot rule out anxiety, particularly with the increased amount stress the patient is under. Patient is asking for Valium which I will provide. I do believe is safe for him to be discharged home as he has a follow-up appointment with his therapist tomorrow. Also provide him with follow-up information for cardiology. He was in agreement this plan. I will provide the patient with a prescription for lidocaine patches. I instructed the patient to follow up with their PCP in the next 3 days. I provided contact information for follow up with cardiology. I explained that the patient should return to the emergency department if they experience any worsening symptoms. Strict return precautions were discussed with the patient. The patient expressed understanding of these instructions. I answered all questions that the patient had. The patient was discharged home in good Condition with their prescriptions and follow up information. - Lab Data Result diagrams: 02/15/21 12:54 02/15/21 12:54 Lab Results 02/15/21 02/15/21 02/15/21 Range/Units 12:54 12:54 12:54 WBC 8.5 (3.8-10.6) k/uL RBC 5.01 (4.30-5.90) m/uL Hgb 15.5 (13.0-17.5) gm/dL Hct 47.1 (39.0-53.0) % MCV 93.9 (80.0-100.0) fL MCH 31.0 (25.0-35.0) pg MCHC 33.0 (31.0-37.0) g/dL RDW 13.4 (11.5-15.5) % Plt Count 328 (150-450) k/uL MPV 7.1 Neutrophils % 54 % Lymphocytes % 34 % Monocytes % 5 % Eosinophils % 6 % Basophils % 1 % Neutrophils # 4.5 (1.3-7.7) k/uL Lymphocytes # 2.9 (1.0-4.8) k/uL Monocytes # 0.4 (0-1.0) k/uL Eosinophils # 0.5 (0-0.7) k/uL Basophils # 0.1 (0-0.2) k/uL PT 10.5 (9.0-12.0) sec INR 1.0 (<1.2) APTT 24.9 (22.0-30.0) sec D-Dimer (<0.60) mg/L FEU Sodium 138 (137-145) mmol/L Potassium 4.4 (3.5-5.1) mmol/L Chloride 108 H (98-107) mmol/L Carbon Dioxide 23 (22-30) mmol/L Anion Gap 7 mmol/L BUN 22 H (9-20) mg/dL Creatinine 0.66 (0.66-1.25) mg/dL Est GFR (CKD-EPI)AfAm >90 (>60 ml/min/1.73 sqM) Est GFR (CKD-EPI)NonAf >90 (>60 ml/min/1.73 sqM) Glucose 93 (74-99) mg/dL Calcium 9.8 (8.4-10.2) mg/dL Magnesium 2.2 (1.6-2.3) mg/dL Total Bilirubin 0.6 (0.2-1.3) mg/dL AST 22 (17-59) U/L ALT 38 (4-49) U/L Alkaline Phosphatase 77 (38-126) U/L Troponin I (0.000-0.034) ng/mL NT-Pro-B Natriuret Pep pg/mL Total Protein 7.2 (6.3-8.2) g/dL Albumin 4.5 (3.5-5.0) g/dL Coronavirus (PCR) (Not Detectd) 02/15/21 02/15/21 02/15/21 Range/Units 12:54 12:54 13:00 WBC (3.8-10.6) k/uL RBC (4.30-5.90) m/uL Hgb (13.0-17.5) gm/dL Hct (39.0-53.0) % MCV (80.0-100.0) fL MCH (25.0-35.0) pg MCHC (31.0-37.0) g/dL RDW (11.5-15.5) % Plt Count (150-450) k/uL MPV Neutrophils % % Lymphocytes % % Monocytes % % Eosinophils % % Basophils % % Neutrophils # (1.3-7.7) k/uL Lymphocytes # (1.0-4.8) k/uL Monocytes # (0-1.0) k/uL Eosinophils # (0-0.7) k/uL Basophils # (0-0.2) k/uL PT (9.0-12.0) sec INR (<1.2) APTT (22.0-30.0) sec D-Dimer 0.22 (<0.60) mg/L FEU Sodium (137-145) mmol/L Potassium (3.5-5.1) mmol/L Chloride (98-107) mmol/L Carbon Dioxide (22-30) mmol/L Anion Gap mmol/L BUN (9-20) mg/dL Creatinine (0.66-1.25) mg/dL Est GFR (CKD-EPI)AfAm (>60 ml/min/1.73 sqM) Est GFR (CKD-EPI)NonAf (>60 ml/min/1.73 sqM) Glucose (74-99) mg/dL Calcium (8.4-10.2) mg/dL Magnesium (1.6-2.3) mg/dL Total Bilirubin (0.2-1.3) mg/dL AST (17-59) U/L ALT (4-49) U/L Alkaline Phosphatase (38-126) U/L Troponin I <0.012 (0.000-0.034) ng/mL NT-Pro-B Natriuret Pep 44 pg/mL Total Protein (6.3-8.2) g/dL Albumin (3.5-5.0) g/dL Coronavirus (PCR) (Not Detectd) 02/15/21 02/15/21 Range/Units 16:24 16:24 WBC (3.8-10.6) k/uL RBC (4.30-5.90) m/uL Hgb (13.0-17.5) gm/dL Hct (39.0-53.0) % MCV (80.0-100.0) fL MCH (25.0-35.0) pg MCHC (31.0-37.0) g/dL RDW (11.5-15.5) % Plt Count (150-450) k/uL MPV Neutrophils % % Lymphocytes % % Monocytes % % Eosinophils % % Basophils % % Neutrophils # (1.3-7.7) k/uL Lymphocytes # (1.0-4.8) k/uL Monocytes # (0-1.0) k/uL Eosinophils # (0-0.7) k/uL Basophils # (0-0.2) k/uL PT (9.0-12.0) sec INR (<1.2) APTT (22.0-30.0) sec D-Dimer (<0.60) mg/L FEU Sodium (137-145) mmol/L Potassium (3.5-5.1) mmol/L Chloride (98-107) mmol/L Carbon Dioxide (22-30) mmol/L Anion Gap mmol/L BUN (9-20) mg/dL Creatinine (0.66-1.25) mg/dL Est GFR (CKD-EPI)AfAm (>60 ml/min/1.73 sqM) Est GFR (CKD-EPI)NonAf (>60 ml/min/1.73 sqM) Glucose (74-99) mg/dL Calcium (8.4-10.2) mg/dL Magnesium (1.6-2.3) mg/dL Total Bilirubin (0.2-1.3) mg/dL AST (17-59) U/L ALT (4-49) U/L Alkaline Phosphatase (38-126) U/L Troponin I <0.012 (0.000-0.034) ng/mL NT-Pro-B Natriuret Pep pg/mL Total Protein (6.3-8.2) g/dL Albumin (3.5-5.0) g/dL Coronavirus (PCR) Not Detected (Not Detectd) - EKG Data -: EKG Interpreted by Me EKG Comments: 12-lead Electrocardiogram Interpretation Note EKG was reviewed and interpreted by myself. 12-lead ECG performed at 1254 is interpreted by me as revealing [normal sinus rhythm] at a rate of and 72 beats per minute. Mobile is normal. NV interval is 108 ms, QRS ration is 110 ms, QTc is 451 ms. There is an incomplete right bundle branch block which is seen on prior EKGs.. There were no ST or T wave abnormalities to suggest myocardial ischemia or injury. R wave progression across the precordium was satisfactory. By my interpretation this EKG is non-diagnostic for acute ischemia. On comparison to prior EKGs, there is no acute change. Disposition Clinical Impression: Chest wall pain, History of anxiety Disposition: HOME SELF-CARE Condition: Good Instructions (If sedation given, give patient instructions): Chest Wall Pain (ED) Prescriptions: Lidocaine 5% Patch [Lidoderm 5% Patch] 1 patch TOPICAL DAILY PRN 7 Days #7 patch PRN Reason: Pain Is patient prescribed a controlled substance at d/c from ED?: No Referrals: Nathan Fung MD [Primary Care Provider] - 1-2 days Atif Sarabia MD [STAFF PHYSICIAN] - 1-2 days
[2021-02-15 17:41] VITALS: BP 130/91; PULSE 71
[2021-02-15] MEDS ORDERED: diazePAM 2 MG TAB PO STA (18:12)
== END 2021-02-15 18:23 | disposition home or self-care (01) ==
LOC: EC 11:55
DX: R07.89 Other chest pain (principal); F41.9 Anxiety disorder, unspecified; J44.9 Chronic obstructive pulmonary disease, unspecified; F17.200 Nicotine dependence, unspecified, uncomplicated; Z88.0 Allergy status to penicillin; Z20.822 Contact with and (suspected) exposure to COVID-19
CPT/HCPCS: 99285; 96374; 96375; 36415; 93005; 85379; 83880; 80053; 83735; 84484; 85025; 85610; 85730; 87635; 71046; J2060; J2270

== ENCOUNTER → 2021-03-25 | Outpatient (CLI) | payer OTHER ==
--- NOTE | 2021-03-25 11:23 | CT ---
CT CHEST FOR PULMONARY EMBOLISM. EXAMINATION TYPE: CT angio chest DATE OF EXAM: 03/25/2021 INDICATION: COPD CT DLP: 250 mGycm, Automated exposure control for dose reduction was used. CONTRAST: Patient injected with 100 mL of Isovue 370. COMPARISON: None TECHNIQUE: CT of the chest is performed on a spiral scan at 2 mm thick sections. Study is performed with intravenous contrast timed for evaluation for pulmonary embolism. This will limit additional po rtions of the evaluation. 3-D MIP images reconstructed by the technologist are reviewed on the compu ter in the coronal and sagittal planes. FINDINGS: No persistent filling defects are evident to suggest an acute pulmonary embolism. No mediastinal or hilar adenopathy enlarged by CT criteria is evident. The ascending aorta diameter at the level of the main pulmonary artery is 3.1 cm. The main pulmonary artery diameter at the bifur cation is 2. cm. There is some reflux into the inferior vena cava and portal veins. There is a 1.1 cm density in the medial right apex. Series 5 image 32. Workup for Neoplasm is recomme nded. The graft Mild emphysematous changes are present. Limited CT section through the upper abdomen are unremarkable. IMPRESSIONS: 1. No acute pulmonary embolism. 2. Medial right apical nodule. CT is recommended for additional evaluation. Neoplasm is not excluded. 3. Mild emphysematous changes.
== END | disposition home or self-care (01) ==
LOC: RADCTMAIN 07:21
PROVIDERS: ATTEND Internal Medicine Critical Care Medicine
DX: J43.9 Emphysema, unspecified (principal); R91.1 Solitary pulmonary nodule
CPT/HCPCS: 71275; Q9967

== ENCOUNTER → 2021-04-02 | Outpatient (CLI) | payer OTHER ==
--- NOTE | 2021-04-03 10:12 | PE ---
EXAMINATION TYPE: PET CT fusion skull to thigh DATE OF EXAM: 04/02/2021 COMPARISON: CTA chest 8 days ago HISTORY: Solitary pulmonary nodule, abnormal CT TECHNIQUE: Following the intravenous administration of 11.04 mCi of F-18 FDG, whole body images are performed from the skull base to the midthigh. Images are reviewed on the computer in the coronal, a xial, and sagittal planes. Reconstructed rotating images are created on independent workstation and reviewed on the computer. A localization and attenuation correction CT is performed in conjunction with the PET scan. Blood glucose level equals 90 SCAN: Initial Scan FINDINGS: SKULL BASE AND NECK: No suspicious abnormal hypermetabolic uptake. CHEST, MEDIASTINUM, AND HILAR REGION: Mild underlying emphysematous change redemonstrated. Stable 6 m m left apical nodule axial image 67. Larger medial right apical 1.2 x 1.0 cm nodule same image is red emonstrated. Both are ametabolic. There is 9 mm nodule anterior right upper to midlung axial image 85 with tiny focal anterior lucency or air that is ametabolic. Mild bibasilar linear scarring and/or at electasis. No areas of abnormal hypermetabolic uptake. ABDOMEN AND PELVIS: Normal excretion. No adrenal masses. No abnormal hypermetabolic uptake. OSSEOUS STRUCTURES: No abnormal hypermetabolic uptake. OTHER CT: Nodular subareolar gynecomastia redemonstrated. Slight scoliotic curvature cervicothoracic junction. There are a few small nonobstructing bilateral renal calculi. Bladder poorly distended with moderate concentric wall thickening. Prostate gland not significantly enlarged. IMPRESSION: 1. There are 3 pulmonary nodules all ametabolic favoring nonneoplastic origin. Consider follow-up con trast enhanced chest CT and/or PET CT in 6-12 months time to document stability. 2. Moderate concentric wall thickening in the bladder, correlate clinically to exclude acute bladder infection
== END | disposition home or self-care (01) ==
LOC: RADPETMAIN 17:02
PROVIDERS: ATTEND Internal Medicine Critical Care Medicine
DX: R91.1 Solitary pulmonary nodule (principal)
CPT/HCPCS: 78815; A9552

== ENCOUNTER → 2024-05-28 | Outpatient (CLI) | payer MEDICARE, OTHER ==
--- NOTE | 2024-05-28 09:21 | US ---
EXAMINATION TYPE: US abdomen complete DATE OF EXAM: 05/28/2024 COMPARISON: NONE CLINICAL INDICATION: Male, 44 years old with history of R10.13 EPIGASTRIC PAIN; Epigastric pain. TECHNIQUE: Grayscale and color Doppler imaging of the abdomen was performed. FINDINGS: EXAM MEASUREMENTS: Liver Length: 17.2 cm Gallbladder Wall: 0.1 cm CBD: 0.4 cm, color Doppler imaging was utilized to isolate the common bile duct for measurement. Spleen: 11.4 cm Right Kidney: 12.2 x 5.2 x 5.5 cm Left Kidney: 11.2 x 4.1 x 4.8 cm Pancreas: Echogenic in appearance Liver: Echogenic and coarse. Hypoechoic area seen adjacent to GB, focal sparing? = 1.4 x 0.9 x 0.8 cm. Right lobe anechoic lesion =1.0 x 1.2 x 1.1 cm Gallbladder: No stones or wall thickening Evidence for sonographic Faith's sign: neg CBD: wnl Spleen: wnl Right Kidney: wnl, No hydronephrosis, calculi or masses seen Left Kidney: Lateral mid anechoic lesion = 2.0 x 1.5 x 1.6 cm Upper IVC: wnl Abd Aorta: No AAA visualized at time of scan IMPRESSION: 1. Mild hepatomegaly with nonspecific pattern of liver which can be associated with hepatic steatosis or underlying hepatocellular disease. Hypoechoic area adjacent to gallbladder measuring 1.4 cm most likely related to area of focal fatty sparing. 2. Hepatic benign cyst. 3. Hypoechoic lesion left kidney does not meet the criteria of a simple cyst. Recommend CT scan. [facility], , 05/28/2024 9:19 AM
== END | disposition home or self-care (01) ==
LOC: RADUSWWP 08:43
PROVIDERS: ATTEND Family Medicine
DX: R16.0 Hepatomegaly, not elsewhere classified (principal); K76.89 Other specified diseases of liver
CPT/HCPCS: 76700